=== PATIENT | female | born 1965 | race Caucasian/White ===

== ENCOUNTER 2018-05-20 09:07 | Emergency (ER) | payer BC, SELFPAY ==
[2018-05-20 09:11] VITALS: BP 139/74; PULSE 65; RESP 18; TEMP 36.6; O2SAT 97
--- NOTE | 2018-05-20 09:28 | DI.REPORT_ITS ---
SYMPTOM/DIAGNOSIS: PAIN, FOOSH, TENDER PROX 1ST [facility] LEFT HAND: Three views. There is a comminuted fracture of the radial styloid process. No other fracture or dislocation is seen. No radiopaque foreign bodies are seen in the soft tissues IMPRESSION: Comminuted nondisplaced fracture of the radial styloid process. LEFT WRIST: 4 views. There is a nondisplaced comminuted fracture of the radial styloid process. No other fracture or dislocation is identified. IMPRESSION: Nondisplaced distal left radial fracture as described.
--- NOTE | 2018-05-20 09:29 | ED.GENADUL ---
Disposition Clinical Impression: Abrasion, Radial styloid fracture Disposition: HOME Instructions: Wrist Fracture in Adults (ED), Abrasion (ED) Additional Instructions: Keep splint intact until cleared by a physician. Follow-up with orthopedics. Call for an appointment. Please take tylenol (acetaminophen) 650 mg every 6 hours as needed for pain. Please take ibuprofen 600 mg by mouth every 6-8 hours as needed for pain for the next few days. Please follow-up with your primary care physician. Return to the emergency department immediately for any worsening or new concerning symptoms. Referrals: Maame Ewing [Primary Care Provider] - Rober Rodriguez MD [ [facility] STAFF PHYSICIAN] - Forms: Work Release Medical Decision Making - Medical Decision Making 52-year-old female presents after mechanical trip and fall with injury to her left wrist and hand. Neurovascular intact distally. Patient also sustained abrasion to her left knee. Tetanus is up-to-date with last immunization 2011. Concern for fracture versus sprain. Tylenol given for pain. X-ray of the left hand and wrist reviewed and interpreted by me: Radial styloid fracture Thumb spica wrist splint applied. Patient neurovascularly intact post splint application. Patient was instructed to limit use of left hand including no lifting of heavy objects. Patient instructed to call orthopedic office to schedule follow-up. Spoke with Dr. Rodriguez who agrees with treatment plan and will see patient in follow-up. History of Present Illness - General Chief complaint: Orthopedic Stated complaint: FALL INJURY Time Seen by Provider: 05/20/18 09:22 Source: patient, RN notes reviewed Mode of arrival: ambulatory Limitations: no limitations - History of Present Illness Initial comments: 52-year-old female presents after trip and fall with chief complaint of left wrist pain. Patient notes she was walking and tripped on uneven sidewalk and fell forward. This occurred just prior to arrival. She has had pain in her wrist and hand since the fall. Pain is worse with movement of her wrist. She is associated abrasion to her left knee. No head trauma. No loss of consciousness. No neck pain. No other injury sustained. - Related Data Lisinopril 20 mg PO DAILY tab-cap 03/06/13 Multivitamin [Daily Vitamin] 1 each PO DAILY 03/23/13 Citalopram [CeleXA] 20 mg PO DAILY 07/16/14 Lovastatin [Mevacor] 40 mg PO DAILY tab-cap 01/26/18 Oxybutynin Chloride [Oxybutynin Chloride ER] 5 mg PO DAILY #90 tab-cap 04/27/18 Allergies Allergy/AdvReac Type Severity Reaction Status Date / Time banana [Banana] AdvReac Severe VOMITING Unverified 05/20/18 09:15 Review of Systems Cardiovascular: denies: chest pain Gastrointestinal: denies: abdominal pain Musculoskeletal: as per HPI Skin: as per HPI Neurological: denies: headache Past Medical History - Past Medical History Medical history: no medical history - Social History Smoking status: never smoker General Exam - General Limitations: no limitations General appearance: alert, in no apparent distress - Head Head exam: Present: atraumatic, normocephalic - Eye Eye exam: Present: EOMI - ENT ENT exam: Present: mucous membranes moist - Respiratory Respiratory exam: Present: normal lung sounds bilaterally - Cardiovascular Cardiovascular Exam: Present: regular rate, normal rhythm, normal heart sounds - Extremities Exam Extremities exam: Present: other (Left upper extremity: Tender palpation base of her first and second metacarpals, snuffbox tenderness is present, tender distal radius, able to flex and extend at her wrist and digits with pain in her wrist; distal sensation and motor intact, no elbow or forearm tenderness; abrasion to left knee, left knee with no effusion, no tenderness along her joint lines and no tenderness over her patella, full range of motion of the knee without pain) - Neurological Exam Neurological exam: Present: alert. Absent: altered, motor sensory deficit (Distal left upper extremity) - Skin Skin exam: Present: warm, dry, abrasion (Left knee) Course Vital Signs - 24 hr 05/20/18 09:11 Temperature 36.6 C Pulse 65 Respiratory 18 Rate Blood Pressure 139/74 Pulse Oximetry 97
[2018-05-20] MEDS: Acetaminophen 325 MG TAB 650 MG PO (09:33)
[2018-05-20] MEDS: Bacitracin 1 PACKET (10:11)
== END 2018-05-20 10:28 | disposition home or self-care (01) ==
PROVIDERS: Emergency Provider Student in an Organized Health Care Education/Training Program; PCP Nurse Practitioner Family
DX: S52.515A Nondisplaced fracture of left radial styloid process, initial encounter for closed fracture (principal); W01.0XXA Fall on same level from slipping, tripping and stumbling without subsequent striking against object, initial encounter
CPT/HCPCS: 25600; 73110; 73130; L3807

== ENCOUNTER → 2018-06-08 10:45 | Outpatient (CLI) | payer BC, SELFPAY ==
--- NOTE | 2018-06-08 11:34 | DI.REPORT_ITS ---
SYMPTOM/DIAGNOSIS: RADIAL STYLOID FX F/U LEFT WRIST: 06/08 Two views were obtained and show previously described fracture of the radial styloid with no gross interval change in alignment of fracture fragments in comparison with examination of May 20.
== END ==
PROVIDERS: PCP Nurse Practitioner Family; Visit Provider Physician Assistant Surgical
DX: S52.515D Nondisplaced fracture of left radial styloid process, subsequent encounter for closed fracture with routine healing (principal)
CPT/HCPCS: 73100

== ENCOUNTER 2018-07-06 12:45 | Outpatient (CLI) | payer BC, SELFPAY ==
--- NOTE | 2018-07-06 08:52 | DI.RAD_ITS ---
SYMPTOMS/DIAGNOSIS: INJURY LEFT WRIST: Two views were obtained and show previously described radial styloid fracture with no gross interval change in alignment in comparison with the examination of 06/08/18.
== END 2018-07-06 13:05 ==
PROVIDERS: PCP Nurse Practitioner Family; Visit Provider Physician Assistant Surgical
DX: S52.515D Nondisplaced fracture of left radial styloid process, subsequent encounter for closed fracture with routine healing (principal)
CPT/HCPCS: 73100

== ENCOUNTER 2018-09-09 10:59 | Outpatient (REF) | payer BC, SELFPAY ==
[2018-09-09 13:16] LABS: Anion Gap 11.2 mmol/L (3-11); BUN 18 mg/dL (7-18); CO2 24.8 mmol/L (21.0-32.0); CREATININE 0.79 mg/dL (0.55-1.02); Calcium 9.3 mg/dL (8.5-10.1); Chloride 105 mmol/L (98-107); Glucose 102 mg/dL (70-100); Potassium 4.6 mmol/L (3.5-5.1); Sodium 141 mmol/L (136-145)
== END 2018-09-09 11:19 ==
LOC: NCHCN 10:59
PROVIDERS: PCP Nurse Practitioner Family; Visit Provider Nurse Practitioner Family
DX: G25.81 Restless legs syndrome (principal); I10 Essential (primary) hypertension; E78.5 Hyperlipidemia, unspecified; L84 Corns and callosities; E66.9 Obesity, unspecified
CPT/HCPCS: 80048; 83735

== ENCOUNTER 2019-01-16 12:22 | Outpatient (REF) | payer BC, SELFPAY ==
[2019-01-16 13:23] LABS: BUN 18 mg/dL (7-18); CREATININE 0.79 mg/dL (0.55-1.02); Calcium 9.4 mg/dL (8.5-10.1); Chloride 105 mmol/L (98-107); Cholesterol 157 mg/dL (50-200); Glucose 101 mg/dL (70-100); HDL Cholesterol 47 mg/dL (40-60); LDL CHOLESTEROL 93 mg/dL (<100); Potassium 4.5 mmol/L (3.5-5.1); Sodium 143 mmol/L (136-145); Triglyceride 128 mg/dL (30-150)
== END 2019-01-16 12:42 ==
LOC: NCHCN 12:22
PROVIDERS: PCP Nurse Practitioner Family; Visit Provider Nurse Practitioner Family
DX: Z00.00 Encounter for general adult medical examination without abnormal findings (principal); I10 Essential (primary) hypertension; E78.5 Hyperlipidemia, unspecified
CPT/HCPCS: 80048; 80061; 83721

== ENCOUNTER 2019-09-04 01:41 | Outpatient (CLI) | payer BC, SELFPAY ==
--- NOTE | 2019-09-04 10:30 | DI.MAMMO_ITS ---
EXAM: MG MAMMO SCREENING CLINICAL HISTORY: SCREENING, Z12.39 TECHNIQUE: Mammograms were interpreted according to the usual protocol including computer analysis w [employer] CAD system, tomosynthesis and C-view imaging. COMPARISON: [id number] FINDINGS: The breasts are composed of fatty tissue, breast density category A. There are no dominant masses or microcalcifications. There has been no significant interval change when compared with the prior imag es. IMPRESSION: Category 1, negative mammogram. Yearly screening mammography is recommended. BI-RADS Cat 1 - Negative Breast Density - Category A - Almost entirely fatty
== END 2019-09-04 02:01 ==
PROVIDERS: PCP Nurse Practitioner Family; Visit Provider Nurse Practitioner Family
DX: Z12.31 Encounter for screening mammogram for malignant neoplasm of breast (principal)
CPT/HCPCS: 77063; 77067

== ENCOUNTER 2020-04-26 09:58 | Day surgery (SDC) | payer BC, SELFPAY ==
[2020-04-26 10:05] VITALS: BP 108/73; PULSE 68; RESP 18; TEMP 36.5; O2SAT 96
--- NOTE | 2020-04-26 11:44 | W.PM.DSUDISC ---
Discharge Plan Disposition Patient Disposition: HOME Condition: Good Discharge Details Reason For Visit: CATARACT Attending Provider: Francis Mathis Primary Care Provider: Balbir Golden Home Meds and New Rx's Prescriptions: No Action lisinopril 20 MG tablet 20 mg PO DAILY RF: 0 multivitamin [Daily Vitamin] 1 EACH tablet 1 ea PO DAILY RF: 0 lovastatin 20 MG tablet 40 mg PO DAILY RF: 0 oxybutynin chloride 5 mg tablet extended release 24hr 5 mg PO DAILY Qty: 90 RF: 3 citalopram 20 MG tablet 20 mg PO DAILY RF: 0 Discharge Instructions Stand Alone Forms: Post-op Topical CataractBola (DSU) Discharge Orders Discharge Orders: Discharge Order (Routine); Ordered 04/26/20 Ordered By: Francis Mathis DS: Diagnosis Discharge Diagnosis (1) Posterior subcapsular age-related cataract of left eye: Status: Resolved (2) Nuclear sclerotic cataract of left eye: Status: Resolved
[2020-04-26] MEDS: Tetracaine 0.5% 4 ML BTL OS (11:55)
[2020-04-26] MEDS: Lidocaine 2% Jelly 6 ML SYR (12:05)
[2020-04-26] MEDS: Lidocaine 1% Pres-Free 5 ML VIAL (12:05)
[2020-04-26] MEDS: Balanced Salt Soln.-PLUS 500 ML BAG (12:05)
[2020-04-26] MEDS: Trypan Blue 0.06% 0.5 ML SYR (12:05)
[2020-04-26] MEDS: Moxifloxacin-PF 1 MG/ML VIAL (12:08)
--- NOTE | 2020-04-26 12:34 | ROE_ITS ---
Date of service: 04/26/20 Time of Service: 12:34 Operative Note Operative Note DATE OF PROCEDURE: 04/26/20 PRE-OP DIAGNOSIS: Nuclear/posterior subcapsular cataract, left eye POST-OP DIAGNOSIS: same PROCEDURE: Cataract extraction using phacoemulsification with intraocular lens implant, left eye, using capsular staining with Vision Blue SURGEON: Francis Mathis ANESTHESIA: MAC (with local sub-tenon's anesthetic injection) COMPLICATIONS: None Patient was transported to: same day Patient's condition: stable Implants: Alvaro and Avlaro / [employer] Tecnis [id number] Indications: Progressive decreased vision due to cataract, left eye, with poor red reflex Procedure Description: CATARACT SURGERY OPERATIVE REPORT PREOPERATIVE DIAGNOSIS: 1. Nuclear/posterior subcapsular cataract, left eye 2. Poor red reflex secondary to #1 POSTOPERATIVE DIAGNOSIS: Same OPERATION: 1. Cataract extraction using phacoemulsification with posterior chamber intraocular lens implant, left eye. 2. Capsular staining with Vision Blue IOL: IOL Leather Belt Maker/Model: Alvaro & Alvaro / HEAVEN Tecnis [id number] IOL Power: + 22.50 diopters IOL Serial Number: [id number] Optic Diameter: 6.0 mm Haptic/Overall Diameter: 13.0 mm PHACO INFO: Chucky Centurion Vision System with OZil and [employer]uid[employer] Cumulative Dispersed Energy (CDE): 8.56 seconds SURGEON: Francis Mathis MD, SAJAN ANESTHESIA: Monitored A [facility] Care (MAC), with local sub-tenon's anesthetic infiltration COMPLICATIONS: None SPECIMENS: None INDICATIONS FOR PROCEDURE: The patient is a 54-year-old lady with history of diminished visual acuity in her left eye. She is noted to have a dense posterior subcapsular cataract in the left eye with moderate nuclear cataract. Visual acuity is 2400. The option of cataract surgery was offered to the patient and she wished to proceed. PROCEDURE: The correct surgical eye was identified and marked as the left eye and the pupil was dilated in the preoperative area using mydriatics and cycloplegics. The dilated pupil size was 7.0 mm. Oral sedation was administered in the form of an Imprimis MKO Melt (midazolam 3mg/ketamine 25mg/ondansetron 2mg). The patient was brought to the operating room where cardiopulmonary monitoring was instituted and surgical time-out was performed, confirming the correct operative eye and IOL power. Topical anesthesia was administered and ophthalmic povidone-iodine 5% was instilled into the conjunctival fornices. Lidocaine gel was applied to the cornea and the vicente-ocular area was prepped with Betadine 10% solution and draped in the usual sterile fashion for intraocular surgery, including an aperture drape. A Tegaderm transparent film dressing was cut in half and used to cover the lashes and lid margins. Care was taken to sequester the lashes and lid margins under the Tegaderm dressing. A lid speculum was placed between the lids of the operative eye and the Roshan-Hari operating microscope was maneuvered into position. Rita scissors were then used to make a conjunctival buttonhole approximately 6mm posterior to the limbus in the inferonasal quadrant. Blunt dissection was carried out to expose bare sclera, and a blunt-tipped sub-tenon?s anesthesia cannula was introduced and passed posteriorly along the globe where non- preserved plain lidocaine was injected into posterior sub-Tenon?s space. A sideport knife was used to make a paracentesis port superiorly/superiortemporally. Intraocular phenylephrine/lidocaine was injected int the anterior chamber.. Air was then injected into the anterior chamber, followed by Vision Blue, which was painted over the anterior capsule and then irrigated out using BSS. The anterior chamber was filled with Healon Pro. A 2.4mm keratome knife was used to create a half-thickness groove at the limbus and then to construct a three-plane near-clear corneal tunnel extending 2.0mm into clear cornea at the 3:00 position. A flap was raised on the anterior capsule and capsulorhexis forceps were used to complete a continuous curvilinear capsulorhexis of 5.0 mm. Balanced salt solution was then used to perform cortical cleaving hydrodissection and nuclear hydrodelineation until the lens could be freely rotated within the capsular bag. The lens nucleus was then disassembled and removed within the capsular bag and iris plane using phacoemulsification. Residual cortical material was removed using the 45-degree angled silicone I/A tip with 0.3mm port. The posterior capsule was carefully polished to remove as much residual lens epithelial cells as safely possible. There was some residual posterior capsular plaque in the subincisional area which could not be safely removed despite extensive polishing. The capsular bag was then inflated and the anterior chamber deepened with viscoelastic. The lens implant described above was inserted into the capsular bag using the HEAVEN Benton Injector. A Kuglen hook was used to dial the IOL into position. Residual viscoelastic was then removed first from posterior to the IOL, then from the anterior chamber using the I/A handpiece. The lens implant was noted to center nicely within the capsular bag. The incisions were stromally hydrated, and the anterior chamber was reformed using BSS. Then 0.5cc of moxifloxacin 1.0mg/ml were injected into the capsular bag and anterior chamber. The incisions were checked with a Weck spear and found to be secure. Several drops of ophthalmic povidone-iodine 5% were then applied to the eye followed by two drops of Imprimis combination prednisolone/moxifloxacin/nepafenac solution. The drapes were removed and a clear plastic protective eye shield was placed over the eye. The patient was then returned to Same Day Surgery in stable condition.
[2020-04-26 12:56] VITALS: BP 94/72; PULSE 81; RESP 18; TEMP 37; O2SAT 96
== END 2020-04-26 13:10 | disposition home or self-care (01) ==
PROVIDERS: PCP Nurse Practitioner Family; Visit Provider Ophthalmology
PROC: (CPT 66982; principal; 2020-04-26 12:30)
DX: H25.12 Age-related nuclear cataract, left eye (principal); H25.012 Cortical age-related cataract, left eye; H35.89 Other specified retinal disorders; I10 Essential (primary) hypertension
CPT/HCPCS: 66982; V2632

== ENCOUNTER 2020-09-17 00:59 | Outpatient (CLI) | payer BC, SELFPAY ==
--- NOTE | 2020-09-17 15:23 | DI.MAMMO_ITS ---
EXAM: MAMMO SCREENING CLINICAL HISTORY: SCREENING,Z12.39 TECHNIQUE: Mammograms were interpreted according to the usual protocol including computer analysis w [employer] CAD system, tomosynthesis and C-view imaging. COMPARISON: FINDINGS: Breasts are of moderate density with fairly symmetrical distribution of fibroglandular tissue. No do minant mass identified in either breast. There are groups of microcalcifications seen in each breast , in the central portion of the left breast and in the inferomedial portion of the right breast. The se appear unchanged comparison previous examination of August 2019. There is no associated mass. The calcifications in both right and left breasts are predominant punctate although a couple of curvi linear calcifications are present. No other significant change seen. IMPRESSION: No specific evidence of malignancy at this time. Follow-up mammogram requested in 12 months to re-ev aluate stable probably benign bilateral microcalcifications. BI-RADS Category 2 - Benign Findings Breast Density - Category B - Scattered areas of fibroglandular density
== END 2020-09-17 01:19 ==
PROVIDERS: PCP Nurse Practitioner Family; Visit Provider Nurse Practitioner Family
DX: Z12.31 Encounter for screening mammogram for malignant neoplasm of breast (principal); R92.0 Mammographic microcalcification found on diagnostic imaging of breast
CPT/HCPCS: 77063; 77067

== ENCOUNTER 2020-10-22 13:12 | Outpatient (REF) | payer BC, SELFPAY ==
[2020-10-21 18:42] LABS: HGB 13.9 g/dL (11.2-15.7); MCH 29.8 pg (27.0-33.0); MCHC 33.1 % (32.0-36.0); MCV 89.9 fL (80-95); MPV 10.2 fL (8.0-11.0); Platelet Count 289 10^3/uL (130-400); RBC 4.67 10^6/uL (3.93-5.22); RDW 12.8 % (11.7-14.6); RDW-SD 41.9 fL; WBC 7.31 10^3/uL (4.4-10.8)
[2020-10-21 19:16] LABS: ALT 46 U/L (14-59); AST 24 U/L (15-37); Albumin 4.1 g/dL (3.4-5.0); Alkaline Phosphatase 71 U/L (46-116); Anion Gap 7.3 mmol/L (3-11); BUN 14 mg/dL (7-18); Bilirubin, Total 0.3 mg/dL (0.2-1.0); CO2 27.7 mmol/L (21.0-32.0); Calcium 9.1 mg/dL (8.5-10.1); Calculated LDL 74 mg/dL (<100); Chloride 105 mmol/L (98-107); Cholesterol 162 mg/dL (<200); Glucose 108 mg/dL (74-106); HDL Cholesterol 46 mg/dL (40-60); Potassium 4.1 mmol/L (3.5-5.1); Sodium 140 mmol/L (136-145); Total Protein 7.1 g/dL (6.4-8.2); Triglyceride 210 mg/dL (<150)
== END 2020-10-22 13:32 ==
LOC: NCHCN 13:12
PROVIDERS: PCP Nurse Practitioner Family; Visit Provider Nurse Practitioner Family
DX: I10 Essential (primary) hypertension (principal); E78.5 Hyperlipidemia, unspecified; E66.9 Obesity, unspecified
CPT/HCPCS: 80053; 80061; 85027

== ENCOUNTER 2021-12-08 11:21 | Emergency (ER) | payer BC, SELFPAY ==
[2021-12-08 11:28] VITALS: BP 140/68; PULSE 57; RESP 14; TEMP 36.7; O2SAT 100
--- NOTE | 2021-12-08 11:45 | DI.RAD_ITS ---
Exam(s) XR KNEE RT 3V AP,LAT,JAMEL EXAM: XR KNEE RT 3V AP,LAT,JAMEL CLINICAL HISTORY: pop while walking, pain minimal, no deformity. TECHNIQUE: 2D digital imaging was performed. COMPARISON: No exams were available for comparison FINDINGS: There is no evidence of fracture but there is a joint effusion the suprapatellar bursa. There are degenerative changes in all 3 compartments. There is mild medial joint space narrowing and marginal osteophytes off the medial compartment. Some degenerative change also noted in the lateral and patellofemoral compartments including osteophytes. No osseous lesions. Bone density normal. IMPRESSION: Degenerative changes. Joint effusion DATA REPOSITORY: RADIATION DOSE DELIVERED:
--- NOTE | 2021-12-08 11:54 | W.ED.GENAD ---
Discharge Plan Disposition Patient Disposition: HOME Condition: Stable Discharge Details Clinical Impression: Acute knee pain Primary Care Provider: PRADEEP NUNEZ ED Provider: Francis Landa Home Meds and New Rx's Prescriptions: Continued oxybutynin chloride 5 mg tablet extended release 24hr 5 mg PO DAILY Qty: 90 3RF simvastatin 20 mg tablet 20 mg PO DAILY 0RF lisinopril 20 MG tablet 20 mg PO DAILY 0RF multivitamin [Daily Vitamin] 1 EACH tablet 1 ea PO DAILY 0RF citalopram 20 MG tablet 20 mg PO DAILY 0RF Discharge Instructions Instructions: Knee Pain (ED) Referrals: Harsh Hernandez MD [MD CONSULTING PHYSICIAN] - 1 week Medical Decision Making 56-year-old female history of hypertension hyperlipidemia presents with atraumatic right knee pain, felt a pop yesterday while walking, mild joint effusion, patient endorses sensation of crepitus with flexion, patient has full flexion extension, is weightbearing and ambulatory without assistance, no hip or distal lower extremity issues, soft compartment warm well perfused extremity, sensate, no joint laxity, no point tenderness on examination. Consider meniscal tear versus cartilaginous injury versus less likely ligamentous tear such as ACL or PCL given no laxity versus unlikely dislocation or fracture or bony malignancy. No evidence of joint infection. Screening x-ray. Anti-inflammatory, home care instructions and will be given Ortho follow-up pending imaging to be discharged home 12: 46 patient resting comfortably no acute distress. Evidence of likely osteoarthritis, osteophytes and mild joint effusion on x-ray. Range of motion and ambulation intact. Patient be given orthopedic follow-up. Likely soft tissue injury consider meniscal injury versus partial ligamentous injury. Given stability of joint and patient comfort no splinting or crutches at this time. HPI General Date/Time Provider Initiated Documentation: 12/08/21 11:24. HPI Narrative: 56-year-old female history of hypertension hyperlipidemia, presents after feeling right knee pop while walking, no direct trauma, is able to range the joint, feels a internal clicking, and feels that the knee is swollen Related Data Home Medications Medication Instructions Recorded Confirmed lisinopril 20 mg tablet 20 mg PO DAILY tab-cap 03/06/13 12/08/21 multivitamin (Daily Vitamin) 1 ea PO DAILY 03/23/13 12/08/21 citalopram 20 mg tablet 20 mg PO DAILY 07/16/14 12/08/21 simvastatin 20 mg tablet 20 mg PO DAILY 07/15/20 12/08/21 oxybutynin chloride 5 mg 5 mg PO DAILY #90 tab-cap 07/17/21 12/08/21 tablet,extended release 24 hr Previous Rx's Medication Instructions Recorded oxybutynin chloride 5 mg 5 mg PO DAILY #90 tab-cap 07/17/21 tablet,extended release 24 hr Allergies Allergy/AdvReac Type Severity Reaction Status Date / Time banana [Banana] AdvReac Severe VOMITING Unverified 12/08/21 11:31 General Stated Complaint: Orthopedic WADE: 4 Review of Systems Narrative: Review of Systems Constitutional: negative Eyes: negative ENT: negative Cardiovascular: negative Respiratory: negative Gastrointestinal: negative : negative Musculoskeletal: Right knee pain Skin: negative Neurologic: negative Psych: negative PFSH All Active Problems (Updated 12/08/21 @ 12:48 by Francis Landa MD) Acute knee pain (Acute) Meralgia paresthetica of right side (Acute) OAB (overactive bladder) (Acute) Medical History Asymptomatic varicose veins Dental abscess Depression Essential hypertension Foot callus Hyperlipidemia Hypertension Illiteracy Obesity (BMI 30.0-34.9) Restless leg syndrome Urge incontinence Urolithiasis Surgical History Appendectomy BLADDER SLING (~02/2012) Colonoscopy - IV Sedation x2 - last 4 years ago Hysterectomy, Laparoscopic Supracervical (~02/2012) with LSO Hysteroscopy laparoscopic RSO Tonsillectomy and adenoidectomy Family History Mother Personal history of malignant neoplasm lung CA Father Personal history of malignant neoplasm Bladder CA Brother Personal history of malignant neoplasm Colon CA - ADENOCARCINOMA OF RECTOSIGMOID Grandfather Dementia Grandmother Diabetes Social History Smoking/Tobacco Use Status: Former Tobacco Use Quit Date: 10/18/14 Smoking risk assessment performed?: Yes Alcohol Intake: current Alcohol Intake frequency: holidays/special occasions only Alcohol type: wine and hard liquor Drug use: Never Substance use type: does not use Household members: other Number of Children: 2 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 Current gender identity: female Do you feel safe at home: Yes Do you feel safe in your relationship?: Yes Exam Narrative Exam Narrative: Physical Examination General: alert, awake, cooperative, resting comfortably, no acute distress HEENT: normocephalic, atraumatic; PERRL, EOM intact, conjunctiva normal; no nasal discharge; moist mucous membranes, oral and pharyngeal mucosa normal, tolerating secretions Neck: supple, trachea midline; full ROM Chest: normal to inspection Respiratory: normal respiratory effort, speaking in full sentences, clear to auscultation, no wheezing, rales or rhonchi Cardiac: regular rate, regular rhythm, S1S2 intact, no murmurs rubs or gallops GI: abdomen soft, non-tender, non-distended; no palpable mass or hepatosplenomegaly Skin: no lesions, rashes or trauma appreciated Neuro: AAOx3, normal speech, moving all extremities Extremities: Full flexion extension right lower extremity at knee, able to ambulate and bear weight without assistance, no crepitus, no joint laxity, mild joint effusion, no point tenderness over patella distal femur or proximal tibia, soft compartments, sensate warm well perfused Psych: Appropriate mood and affect Course Vital Signs Vital signs: Vital Signs Temperature 36.7 C 12/08/21 11:28 Pulse 57 L 12/08/21 11:28 Respiratory Rate 14 12/08/21 11:28 Blood Pressure 140/68 12/08/21 11:28 Pulse Oximetry 100 12/08/21 11:28 Temperature 36.7 C 12/08/21 11:28 Temperature Source Temporal Artery Scan 12/08/21 11:28 Pulse 57 L 12/08/21 11:28 Respiratory Rate 14 12/08/21 11:28 Respiratory Effort Non-Labored 12/08/21 11:29 Blood Pressure 140/68 12/08/21 11:28 Blood Pressure Position Sitting 12/08/21 11:28 Pulse Oximetry 100 12/08/21 11:28 Oxygen Delivery Method Room Air 12/08/21 11:28 Oxygen Flow Rate 0 12/08/21 11:28 Pain Level 6 12/08/21 11:28
[2021-12-08] MEDS: Dexamethasone 4 MG TAB 10 MG PO (11:59)
== END 2021-12-08 13:01 | disposition home or self-care (01) ==
PROVIDERS: Emergency Provider Emergency Medicine; PCP Nurse Practitioner Family
DX: M25.561 Pain in right knee (principal)
CPT/HCPCS: 73562; 99283; J8540

== ENCOUNTER 2022-03-11 17:47 | Outpatient (REF) | payer BC, SELFPAY ==
[2022-03-11 17:21] LABS: HCT 43.8 % (36.0-46.0); HGB 14.4 g/dL (11.2-15.7); MCHC 32.9 % (32.0-36.0); MCV 91 fL (80-95); MPV 10.4 fL (8.0-11.0); Platelet Count 288 10^3/uL (130-400); RDW 12.8 % (11.7-14.6); RDW-SD 42.9 fL; WBC 7.75 10^3/uL (4.4-10.8)
[2022-03-11 17:35] LABS: ALT 35 U/L (14-59); AST 19 U/L (15-37); Albumin 4.3 g/dL (3.4-5.0); Alkaline Phosphatase 76 U/L (46-116); BUN 15 mg/dL (7-18); Bilirubin, Total 0.4 mg/dL (0.2-1.0); CREATININE 0.8 mg/dL (0.55-1.02); Calculated LDL 86 mg/dL (<100); Chloride 104 mmol/L (98-107); Cholesterol 173 mg/dL (<200); Glucose 89 mg/dL (74-106); HDL Cholesterol 48 mg/dL (40-60); Potassium 4.5 mmol/L (3.5-5.1); Sodium 141 mmol/L (136-145); Total Protein 7.1 g/dL (6.4-8.2); Triglyceride 195 mg/dL (<150)
[2022-03-13 09:56] LABS: Hepatitis C Ab w Rflx HCV PCR Negative (Negative)
[2022-03-13 10:04] LABS: HIV-1/2 Ag & Ab Screen Negative (Negative)
== END 2022-03-11 17:48 | disposition home or self-care (01) ==
LOC: NCHCN 17:47
PROVIDERS: PCP Nurse Practitioner Family; Visit Provider Nurse Practitioner Family
DX: I10 Essential (primary) hypertension (principal); E78.5 Hyperlipidemia, unspecified; F32.9 Major depressive disorder, single episode, unspecified; E66.9 Obesity, unspecified; Z11.59 Encounter for screening for other viral diseases; Z11.4 Encounter for screening for human immunodeficiency virus [HIV]; Z00.00 Encounter for general adult medical examination without abnormal findings
CPT/HCPCS: 80053; 80061; 85027; 86803; 87389

== ENCOUNTER → 2022-03-30 01:37 | Outpatient (CLI) | payer BC, SELFPAY ==
--- NOTE | 2022-03-30 13:05 | DI.MAMMO_ITS ---
Exam(s) MAMMO SCREENING EXAM: MAMMO SCREENING CLINICAL HISTORY: SCREENING,Z12.39,Z71.89 TECHNIQUE: Mammograms were interpreted according to the usual protocol including computer analysis w [employer] CAD system, tomosynthesis and C-view imaging. COMPARISON: 2012 through 2019 FINDINGS: The breasts are composed of mainly fatty density , Breast Density category A. No suspicious masses or suspicious microcalcifications are seen. Stable calcifications are again not ed in the medial inferior right breast and in the central left breast. No skin thickening or abnormal axillary lymph nodes are seen. There has been no significant change from prior exams. IMPRESSION: BI-RADS Cat 2 - Benign Findings Yearly screening mammography is recommended. Breast Density - Category A, fatty density. A negative radiographic report should not delay biopsy if a dominant or clinically suspicious mass is present. Up to ten percent of cancers are not identified on mammography. A negative report may reinforce clinical impression. Adenosis and dense breasts may obscure an underlying neoplasm. False positive reports average 6 to 10%. Patient will receive a letter notifying them of these results.
== END ==
PROVIDERS: PCP Nurse Practitioner Family; Visit Provider Nurse Practitioner Family
DX: Z00.00 Encounter for general adult medical examination without abnormal findings (principal); Z12.31 Encounter for screening mammogram for malignant neoplasm of breast; R92.1 Mammographic calcification found on diagnostic imaging of breast
CPT/HCPCS: 77063; 77067

== ENCOUNTER 2023-03-16 17:13 | Outpatient (REF) | payer MEDICARE, SELFPAY ==
[2023-03-16 15:56] LABS: Abs Immature Grans 0.02 10^3/uL (0.0-0.06); Absolute Basophil Count 0.08 10^3/uL (0.0-0.2); Absolute Eosinophil Count 0.21 10^3/uL (0.0-0.7); Absolute Lymphocyte Count 2.09 10^3/uL (1.2-3.4); Absolute Monocyte Count 0.51 10^3/uL (0.1-0.8); Absolute Neutrophil Count 3.78 10^3/uL (1.2-6.7); Basophils % 1.2; Eosinophils % 3.1; HCT 43.2 % (36.0-46.0); Immature Grans % 0.3; Lymphocytes % 31.2; MCH 29.5 pg (27.0-33.0); MCHC 32.4 % (32.0-36.0); MCV 91 fL (80-95); MPV 9.8 fL (8.0-11.0); Monocytes % 7.6; Neutrophils % 56.6; Platelet Count 285 10^3/uL (130-400); RBC 4.75 10^6/uL (3.93-5.22); RDW 12.6 % (11.7-14.6); WBC 6.69 10^3/uL (4.4-10.8)
[2023-03-16 16:22] LABS: ALT 39 U/L (14-59); AST 21 U/L (15-37); Albumin 4.1 g/dL (3.4-5.0); Alkaline Phosphatase 72 U/L (46-116); BUN 14 mg/dL (7-18); Bilirubin, Total 0.4 mg/dL (0.2-1.0); CO2 29.9 mmol/L (21.0-32.0); CREATININE 0.8 mg/dL (0.55-1.02); Calcium 9.3 mg/dL (8.5-10.1); Calculated LDL 78 mg/dL (<100); Cholesterol 157 mg/dL (<200); Estimated GFR 84.82 (mL/min/1.73m2); Glucose 111 mg/dL (74-106); HDL Cholesterol 55 mg/dL (40-60); Total Protein 7.7 g/dL (6.4-8.2); Triglyceride 122 mg/dL (<150)
[2023-03-16 16:54] LABS: Anion Gap 5.1 mmol/L (3-11); Chloride 105 mmol/L (98-107); Potassium 4.4 mmol/L (3.5-5.1); Sodium 140 mmol/L (136-145)
== END 2023-03-16 17:14 | disposition home or self-care (01) ==
LOC: NCHCN 17:13
PROVIDERS: PCP Nurse Practitioner Family; Visit Provider Nurse Practitioner Family
DX: I10 Essential (primary) hypertension (principal); E78.5 Hyperlipidemia, unspecified; N32.81 Overactive bladder; F32.9 Major depressive disorder, single episode, unspecified; M72.2 Plantar fascial fibromatosis
CPT/HCPCS: 80053; 80061; 85025

== ENCOUNTER 2023-04-06 14:14 | Outpatient (REF) | payer MEDICARE, SELFPAY ==
--- NOTE | 2023-04-06 14:15 | PAPFT_PTH ---
PATIENT: Maureen Enriquez LOC: [facility] U#:[id number] AGE/SX: 57/F ROOM: RE04/06/[address]: Yesica Michelle MD : 1965 BED: DIS: 04/06/2023 SPEC #: [id number] RECD: 04/06/23 17:42 STATUS: LUCIO LIRA #: [id number] STEVAN: 04/06/23 14:[address]: Yesica Michelle DEPT: [facility] Cytology RECD BY: Shameka Herring ENTERED: 04/06/23 17:43 SP TYPE: PAPFT SHANT DR: PRADEEP NUNEZ NP Tissues: 1 - CX/ENDOCX FOR PAP SMEARS Procedures: PAP THIN PREP/UVM Screening HPV DNA PROBE Comments: [id number]
== END 2023-04-06 14:15 | disposition home or self-care (01) ==
LOC: LBN 14:14
PROVIDERS: PCP Nurse Practitioner Family; Visit Provider Obstetrics & Gynecology
DX: Z11.51 Encounter for screening for human papillomavirus (HPV) (principal); Z01.419 Encounter for gynecological examination (general) (routine) without abnormal findings
CPT/HCPCS: 88142; 87624

== ENCOUNTER 2023-04-30 00:59 | Outpatient (CLI) | payer MEDICARE, SELFPAY ==
--- NOTE | 2023-04-30 07:08 | DI.MAMMO_ITS ---
Exam(s) MAMMO SCREENING EXAM: MAMMO SCREENING CLINICAL HISTORY: screening, Z12.39. TECHNIQUE: Bilateral full field digital CC and MLO mammographic images were obtained with 3D tomosyn thesis and utilizing computer aided detection (CAD). COMPARISON: Prior mammograms were reviewed. FINDINGS: There has been no significant change in the appearance and distribution of the fibroglandular tissue which is again noted be predominately fatty.. There are no new spiculated masses There are no new spiculated masses. Previously described in microcalcification group in the left breast remains stable. Previously described microcalcifications in the right breast remains stable. No new malignant-appearing microcalcification groups in either breast. There is no significant architectural distortion nor skin thickening-retraction. IMPRESSION: Stable findings. No radiographic evidence of malignancy. BI-RADS Category 2 - Benign Findings Breast Density - Category A - Almost entirely fatty Breast density Category C or D implies that the patient has dense breast tissue. Dense breast tissue can make it harder to find cancer on a mammogram. Dense breast tissue is also associated with an incr eased risk of breast cancer. This information about the result of the mammogram report was provided to the patient to raise their awareness. Use this report when you speak with the patient about their risks for breast cancer, which includes their family history. At that time, you may recommend additional screening tests (Ultrasoun d or MRI) as these tests may add significant information. A negative radiographic report should not delay biopsy if a dominant or clinically suspicious mass is present. Up to ten percent of cancers are not identified on mammography. A negative report may reinforce clinical impression. Adenosis and dense breasts may obscure an underlying neoplasm. False positive reports average 6 to 10%. Patient will receive a letter notifying them of these results.
== END 2023-04-30 01:19 ==
LOC: DI 01:00
PROVIDERS: PCP Nurse Practitioner Family; Visit Provider Obstetrics & Gynecology
DX: Z12.31 Encounter for screening mammogram for malignant neoplasm of breast (principal)
CPT/HCPCS: 77063; 77067

== ENCOUNTER 2023-08-15 12:20 | Emergency (ER) | payer OTHER, SELFPAY ==
[2023-08-15 12:23] VITALS: BP 132/65; PULSE 68; RESP 18; TEMP 37; O2SAT 98
--- NOTE | 2023-08-15 12:55 | ED.GENADUL_ITS ---
Discharge Plan Disposition Patient Disposition: Home Condition: Good Discharge Details Clinical Impression: Dysuria Primary Care Provider: PRADEEP NUNEZ ED Provider: Barrett Moreno Burgess Meds and New Rx's Prescriptions: New cephalexin 500 mg capsule 500 mg PO TID Qty: 9 0RF phenazopyridine [Pyridium] 100 mg tablet 100 mg PO TID PRN (Reason: pain) Qty: 6 0RF No Action simvastatin 20 mg tablet 20 mg PO DAILY lisinopril 20 MG tablet 20 mg PO DAILY multivitamin [Daily Vitamin] 1 EACH tablet 1 ea PO DAILY oxybutynin chloride 5 mg tablet extended release 24hr 5 mg PO DAILY Qty: 90 3RF citalopram 20 MG tablet 20 mg PO DAILY Discharge Instructions Instructions: Dysuria (ED) Discharge Data Discharge Date/Time-TO BE ENTERED AT DEPARTURE: 08/15/23 13:45 HPI General Date/Time Provider Initiated Documentation: 08/15/23 12:36 . HPI Narrative: 57 year old female presents to the ED with c/o burning when she urinates over the past 4 days or so. She denies any n/v/d, no fever/chills. She is concerned she has a UTI. Denies any blood in her urine. Related Data Home Medications Medication Instructions Recorded Confirmed lisinopril 20 mg tablet 20 mg PO DAILY 03/06/13 08/15/23 multivitamin (Daily Vitamin tablet) 1 ea PO DAILY 03/23/13 08/15/23 citalopram 20 mg tablet 20 mg PO DAILY 07/16/14 08/15/23 simvastatin 20 mg tablet 20 mg PO DAILY 07/15/20 08/15/23 oxybutynin chloride 5 mg 5 mg PO DAILY #90 tab-caps 07/19/23 08/15/23 tablet,extended release 24 hr cephalexin 500 mg capsule 500 mg PO TID #9 caps 08/15/23 phenazopyridine 100 mg tablet 100 mg PO TID PRN pain 6 doses #6 08/15/23 (Pyridium) tabs Previous Rx's Medication Instructions Recorded oxybutynin chloride 5 mg 5 mg PO DAILY #90 tab-caps 07/19/23 tablet,extended release 24 hr cephalexin 500 mg capsule 500 mg PO TID #9 caps 08/15/23 phenazopyridine 100 mg tablet 100 mg PO TID PRN pain 6 doses #6 08/15/23 (Pyridium) tabs Allergies Allergy/AdvReac Type Severity Reaction Status Date / Time banana [Banana] AdvReac Severe VOMITING Unverified 08/15/23 12:46 General Stated Complaint: Urinary WADE: 3 Review of Systems Narrative: CONST: no fever or chills ABD: no abd pain EXTR: no swelling PFSH All Active Problems (Updated 08/15/23 @ 13:31 by Barrett Moreno MD) Dysuria (Acute) Corns and callosities (Acute) Acquired hammertoes of both feet (Acute) Contracture of Achilles tendon (Acute) Medical History Asymptomatic varicose veins Dental abscess Depression Essential hypertension Foot callus Hyperlipidemia Hypertension Illiteracy Meralgia paresthetica of right side OAB (overactive bladder) Obesity (BMI 30.0-34.9) Osteoarthritis of right knee Injection: 12/23/2021 Pain, foot Plantar fasciitis Restless leg syndrome Urge incontinence Urolithiasis Surgical History Appendectomy BLADDER SLING (~02/2012) Colonoscopy - IV Sedation x2 - last 4 years ago Hysterectomy, Laparoscopic Supracervical (~02/2012) with LSO Hysteroscopy laparoscopic RSO Tonsillectomy and adenoidectomy Family History Mother Personal history of malignant neoplasm lung CA Father Personal history of malignant neoplasm Bladder CA Brother Personal history of malignant neoplasm Colon CA - ADENOCARCINOMA OF RECTOSIGMOID Grandfather Dementia Grandmother Diabetes Social History Smoking/Tobacco Use Status: Former Tobacco Use Quit Date: 10/18/14 Smoking risk assessment performed?: Yes Alcohol Intake: current Alcohol Intake frequency: holidays/special occasions only Alcohol type: wine and hard liquor Drug use: Never Substance use type: does not use Household members: other Number of Children: 2 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 Discussed meds for her sx's for next 3 days, and to give a new sample to her pcp to ensure feeling better. Return for any worsening or concerning sx's. Vital Signs Vital signs: Vital Signs Temperature 37 C 08/15/23 12:23 Pulse 68 08/15/23 12:23 Respiratory Rate 18 08/15/23 12:23 Blood Pressure 132/65 08/15/23 12:23 Pulse Oximetry 98 08/15/23 12:23 Temperature 37 C 08/15/23 12:23 Temperature Source Skin 08/15/23 12:23 Pulse 68 08/15/23 12:23 Respiratory Rate 18 08/15/23 12:23 Respiratory Effort Normal 08/15/23 12:53 Blood Pressure 132/65 08/15/23 12:23 Blood Pressure Position Sitting 08/15/23 12:23 Pulse Oximetry 98 08/15/23 12:23 Oxygen Delivery Method Room Air 08/15/23 12:23 Oxygen Flow Rate 0 08/15/23 12:23 Pain Level 5 08/15/23 12:23 Comment taking ibuprofen 08/15/23 12:23
[2023-08-15 13:03] LABS: Bilirubin Negative (Negative); Blood Negative (Negative); Clarity Clear (Clear); Glucose Negative (Negative); Ketones Negative (Negative); Leukocyte Esterase Small (Negative); Nitrite Negative (Negative); Specific Gravity 1.025 (1.005-1.025); Urobilinogen 0.2 mg/dL (Up to 0.2); pH 5.5 (5-8)
[2023-08-15 13:14] LABS: Bacteria Moderate HPF (Negative); C & S Indicated? No/Sq. Contamination; Casts Negative LPF (Negative); Crystals Negative HPF (Negative); Epithelial Cells Many HPF (Negative); Mucus Negative (Negative)
== END 2023-08-15 13:45 | disposition home or self-care (01) ==
PROVIDERS: Student in an Organized Health Care Education/Training Program; Emergency Provider Emergency Medicine; PCP Nurse Practitioner Family
DX: R30.0 Dysuria (principal)
CPT/HCPCS: 99283; 81003; 81015

== ENCOUNTER → 2024-03-01 09:46 | Outpatient (CLI) | payer OTHER, SELFPAY ==
--- NOTE | 2024-03-01 09:15 | DI.RAD_ITS ---
Exam(s) XR FOOT RT COMPLETE EXAM: XR FOOT RT COMPLETE CLINICAL HISTORY: Right 5th toe pain, hammertoe rt foot, M20.41. TECHNIQUE: 2D digital imaging was performed of the right foot. Three images were obtained. AP, obl ique and lateral views were obtained. COMPARISON: CR RIGHT FOOT COMPLETE from 06/26/2012 FINDINGS: BONES: No acute fracture is present. No bony destructive lesion is seen. There is a plantar calcaneal spur. There is an enthesophyte at the posterior calcaneus. JOINTS: No dislocation present. Degenerative changes are seen in the foot. SOFT TISSUE: Normal. IMPRESSION: No acute fracture or dislocation. DATA REPOSITORY: RADIATION DOSE DELIVERED:
== END ==
PROVIDERS: PCP Nurse Practitioner Family; Visit Provider Podiatrist
DX: M20.41 Other hammer toe(s) (acquired), right foot (principal)
CPT/HCPCS: 73630

== ENCOUNTER 2024-03-27 15:20 | Outpatient (REF) | payer OTHER, SELFPAY ==
[2024-03-27 21:31] LABS: Abs Immature Grans 0.02 10^3/uL (0.0-0.06); Absolute Basophil Count 0.06 10^3/uL (0.0-0.2); Absolute Lymphocyte Count 1.54 10^3/uL (1.2-3.4); Absolute Monocyte Count 0.57 10^3/uL (0.1-0.8); Absolute Neutrophil Count 4.93 10^3/uL (1.2-6.7); Basophils % 0.8 %; Eosinophils % 1.4 %; HCT 45.8 % (36.0-46.0); HGB 15.2 g/dL (11.2-15.7); Immature Grans % 0.3 %; Lymphocytes % 21.3 %; MCH 29.5 pg (27.0-33.0); MCHC 33.2 % (32.0-36.0); MCV 89 fL (80-95); Monocytes % 7.9 %; Neutrophils % 68.3 %; Platelet Count 259 10^3/uL (130-400); RBC 5.15 10^6/uL (3.93-5.22); RDW 12.5 % (11.7-14.6); RDW-SD 40.9 fL; WBC 7.22 10^3/uL (4.4-10.8)
[2024-03-27 21:44] LABS: ALT 32 U/L (14-59); AST 19 U/L (15-37); Albumin 4.4 g/dL (3.4-5.0); Alkaline Phosphatase 81 U/L (46-116); Anion Gap 9.8 mmol/L (3-11); BUN 17 mg/dL (7-18); Bilirubin, Total 0.5 mg/dL (0.2-1.0); CO2 28.2 mmol/L (21.0-32.0); CREATININE 0.8 mg/dL (0.55-1.02); Calcium 9.3 mg/dL (8.5-10.1); Chloride 101 mmol/L (98-107); Glucose 103 mg/dL (74-106); Potassium 4.3 mmol/L (3.5-5.1); Sodium 139 mmol/L (136-145); Total Protein 7.7 g/dL (6.4-8.2)
[2024-03-29 12:50] LABS: Lyme Ab w Rflx to Lyme Confirm Negative (Negative)
[2024-03-31 14:59] LABS: Anaplasma phagocytophilum Negative (Negative); B. miyamotoi PCR Negative (Negative); Babesia divergens/MO-1 Negative (Negative); Babesia duncani Negative (Negative); Babesia microti Negative (Negative); Ehrlichia chaffeensis Negative (Negative); Ehrlichia ewingii/canis Negative (Negative); Ehrlichia muris eauclairensis Negative (Negative)
== END 2024-03-27 15:21 | disposition home or self-care (01) ==
LOC: LBN 15:20
PROVIDERS: PCP Nurse Practitioner Family; Visit Provider Nurse Practitioner Family
DX: R53.83 Other fatigue (principal)
CPT/HCPCS: 80053; 87798; 85025; 86618

== ENCOUNTER 2024-03-28 18:53 | Outpatient (REF) | payer OTHER, SELFPAY ==
[2024-03-29 17:03] LABS: Campylobacter PCR Negative (Negative); Salmonella PCR Negative (Negative); Shiga Toxin PCR Negative (Negative); Shigella/Enteroinvasive Ecoli Negative (Negative)
== END 2024-03-28 18:54 | disposition home or self-care (01) ==
LOC: LBN 18:53
PROVIDERS: PCP Nurse Practitioner Family; Visit Provider Nurse Practitioner Family
DX: R19.7 Diarrhea, unspecified (principal)
CPT/HCPCS: 87505; 87177

== ENCOUNTER 2024-07-10 08:10 | Day surgery (SDC) | payer OTHER, SELFPAY ==
--- NOTE | 2024-07-09 11:49 | W.PM.DSUDISC ---
Date of service: 07/10/24 Time of Service: 10:14 Discharge Plan Disposition Patient Disposition: Home Condition: Good Discharge Details Reason For Visit: screening colonoscopy Attending Provider: Petros Nelson Primary Care Provider: PRADEEP NUNEZ Home Meds and New Rx's Prescriptions: Continued simvastatin 20 mg tablet 20 mg PO DAILY lisinopril 20 MG tablet 20 mg PO DAILY multivitamin [Daily Vitamin] 1 EACH tablet 1 ea PO DAILY oxybutynin chloride 5 mg tablet extended release 24hr 5 mg PO DAILY Qty: 90 3RF citalopram 20 MG tablet 20 mg PO DAILY Discontinued polyethylene glycol 3350 17 gram/dose powder 238 g PO ONCE Qty: 238 0RF Rx Instructions: take per colonoscopy instructions bisacodyl [Dulcolax (bisacodyl)] 5 mg tablet,delayed release (DR/EC) 5 mg PO ONCE Qty: 4 0RF Rx Instructions: take per colonoscopy instructions Discharge Instructions Instructions: Colon polyps Additional Instructions: Maureen, we were able to complete colonoscopy today without any difficulty. I hope you are comfortable. I did find to remove a single polyp today. To the naked eye, it does not appear at all worrisome. To be safe, however, we will send it off to the pathologist, and once we know the nature of this polyp, the office will be in touch with recommendations for the timing of your next colonoscopy. If you have any questions in the meantime, please do not hesitate to call. 1. If tolerated, consume a soft, low fiber diet for 1-2 days. [address] Do not drive, drink alcohol, operate machinery, make critical decisions, or do activities that require coordination or balance for 24 hours. 3. Because air was put into your colon during the procedure, expelling air from your rectum (passing gas or farting) is normal. 4. You may not have a bowel movement for 1-3 days because of the colonoscopy prep. This is normal. 5. Go directly to the emergency room if you notice any of the following: Develop chills (warm to touch), or if you have a thermometer and your temperature is above 101 Difficulty breathing or difficultly swallowing Persistent vomiting Severe abdominal pain, other than gas cramps Severe chest pain Black, tarry stools Any bleeding ? exceeding one tablespoon 6. Call your physician if the site where your intravenous was started becomes red, swollen, painful, and warm to touch. 7. Your physician has reviewed your pre-procedure medications. Please continue to take those medications as previously ordered. You will be given specific information/education regarding any changes to your medications before leaving. Activity:: Activity as Tolerated Diet:: As Tolerated Discharge Orders Discharge Orders: Discharge Order (Routine); Ordered 07/09/24 Ordered By: Petros Nelson DS: Diagnosis Discharge Diagnosis (1) Encounter for screening colonoscopy: Status: Acute Asessment and Plan: Follow-up on polypectomy results
--- NOTE | 2024-07-09 11:50 | COLE_ITS ---
Date of service: 07/10/24 Time of Service: 10:15 Colonoscopy Report Date of procedure: 07/10/24 Pre-op diagnosis general: screening colonoscopy Post-op diagnosis procedure note: other (Colon polyp) Procedure: colonoscopy with polypectomy Surgeon: Petros Nelson Anesthesia Type: General:No Airway Estimated blood loss (mL): 5 Pathology: other (0.25 cm pedunculated polyp at 25 cm from the anus) Complications: None Disposition: same day Indications: Maureen is a 58 year old woman who needs her next screening colonoscopy Prep: Miralax/Dulcolax Procedure Start Time: 09:49 Procedure End Time: 10:06 Retraction Time: 9 Findings: 0.25 cm pedunculated polyp at 25 cm from the anus Procedure Description: After the induction of monitored anesthesia, and with the patient in left lateral decubitus position, I began by performing an external anorectal exam.? Perineum and skin were normal, as was the anal verge.? There was no evidence of external hemorrhoids.? Next, I performed a digital rectal exam.? I did not appreciate any abnormal findings.? Next, I advanced a colonoscope into the rectal vault.? I performed retroflexion.? This appeared normal.? Using insufflation, I then advanced the colonoscope beyond the rectal folds and into the sigmoid colon before advancing towards the cecum.? The scope was noted to be in the cecum by identification of the ileocecal valve and appendiceal orifice.? I then began withdrawing the colonoscope using repeated irrigation as necessary for full evaluation of the colonic mucosa. Around 25 cm from the anal verge I identified a 0.25 cm polyp. ?It appeared pedunculated in character. ?I was able to remove this with a cold forcep polypectomy. ?I examined the site, and there was minimal bleeding. ?Once this was completed, I continued to withdraw the scope and examine the remainder of the colonic mucosa.?Once the scope was withdrawn to the level of the rectum, great care was taken to examine portions of the rectal folds.? Finally, the scope was withdrawn and the patient was brought to the same-day surgery recovery unit as the anesthetic wore off. ?The findings and instructions were shared with the patient prior to discharge. [place] Bowel Prep [place] Bowel Prep Right Colon: 3 Left Colon: 3 Transverse Colon: 3 Total Score: 9
[2024-07-10 08:32] VITALS: BP 128/65; PULSE 54; RESP 18; TEMP 36.1; O2SAT 99
[2024-07-10] MEDS: Lactated Ringers 1,000 ML 80 ML IV (08:58)
--- NOTE | 2024-07-10 09:11 | ANES.PREOP_ITS ---
General Info Date of Service Date Performed: 07/10/24 Height: 5 ft 2 in Weight: 82.6 kg Body Mass Index (BMI): 33.3 Surgical Procedure: Operation Date: 07/10/24 09:50 Proposed Procedure Side Surgeon p Hetal Nelson MD Meds Allergies and Home Medications Allergies Allergy/AdvReac Type Severity Reaction Status Date / Time banana (Banana) AdvReac Severe VOMITING Verified 07/10/24 08:38 Home Medication ?Medication ?Instructions ?Recorded lisinopril 20 mg tablet 20 mg PO DAILY 03/06/13 multivitamin (Daily Vitamin tablet) 1 ea PO DAILY 03/23/13 citalopram 20 mg tablet 20 mg PO DAILY 07/16/14 simvastatin 20 mg tablet 20 mg PO DAILY 07/15/20 oxybutynin chloride 5 mg 5 mg PO DAILY #90 tab-caps 07/19/23 tablet,extended release 24 hr Current Visit Medications: Current Medications Generic Name Dose Route Start Last Admin Trade Name Freq PRN Reason Stop Dose Admin Hyoscyamine Sulfate 0.125 mg 07/09/24 11:51 Hyoscyamine 0.125 Mg Sl/Oral/Chew SL 08/08/24 11:50 DIRECTED PRN Ringer's Solution 1,000 mls @ 80 mls/hr 07/10/24 06:00 07/10/24 08:58 IV 07/10/24 23:59 80 mls/hr INFUSION YADY Administration IV Miscellaneous Supplies 1 each 07/10/24 06:00 Iv Access IV 07/10/24 23:59 DIRECTED YADY Sodium Chloride 0 ml 07/10/24 06:00 Normal Saline Flush 10 Ml Syr IV 07/10/24 23:59 PRN PRN Sodium Chloride 0 ml 07/10/24 06:00 Normal Saline 10 Ml Vial IJ 07/10/24 23:59 DIRECTED PRN Sterile Water 0 ml 07/10/24 06:00 Water,Injection,Sterile 10 Ml Vial IJ 07/10/24 23:59 DIRECTED PRN PFSH Active Problems Active Problems: Problem Status Onset Code Encounter for screening colonoscopy Acute Z12.11 Hammertoe of right foot Acute M20.41 Corns and callosities Acute L84 Acquired hammertoes of both feet Acute M20.41, M20.42 Contracture of Achilles tendon Acute M67.00 Posterior subcapsular age-related cataract of left eye Resolved H25.042 Nuclear sclerotic cataract of left eye Resolved H25.12 Medical History Medical History (Updated 07/10/24 @ 08:39 by Shelley Delgado RN) Tobacco use disorder (03/15/14) Family history of colon cancer (03/15/14) OAB (overactive bladder) (04/27/18) Pain, foot Plantar fasciitis Osteoarthritis of right knee Injection: 12/23/2021 Urolithiasis Asymptomatic varicose veins Obesity (BMI 30.0-34.9) Illiteracy Urge incontinence Foot callus Restless leg syndrome Hypertension Dental abscess Meralgia paresthetica of right side Hyperlipidemia Depression OAB (overactive bladder) Essential hypertension Surgical History Surgical History History of bilateral cataract extraction laparoscopic RSO Tonsillectomy and adenoidectomy Hysteroscopy Hysterectomy, Laparoscopic Supracervical (~02/2012) with LSO Colonoscopy - IV Sedation x2 - last 4 years ago BLADDER SLING (~02/2012) Appendectomy Tobacco Smoking/Tobacco Use Status: Former Tobacco Use Passive smoking exposure: No Alcohol Alcohol Intake: current Alcohol intake frequency: holidays/special occasions only Alcohol type: wine and hard liquor Substance Use Substance use: Never Substance use type: does not use Prental History History 3 Para Hx # Term Pregnancies 2 Multiple births Hx # Pregnancies Ectopic pregnancies AB induced Hx Number of Living Children 2 AB spontaneous 1 Vital Signs and Lab Results Vital Signs Most Recent Vital Signs in EMR: Most Recent Vital Signs Temp Pulse Resp BP Pulse Ox 36.1 C L 54 L 18 128/65 99 07/10/24 08:32 07/10/24 08:32 07/10/24 08:32 07/10/24 08:32 07/10/24 08:32 Lab Results Blood Type / Crossmatch: No Data to Display Complete Blood Count: No Data to Display Complete Metabolic Panel: No Data to Display Liver Function Panel: No Data to Display Coagulation Panel: No Data to Display Cardiac Panel: 2 No Data to Display Arterial Blood Gas: No Data to Display Venous Blood Gas: No Data to Display Pancreas Panel: No Data to Display Thyroid Panel: No Data to Display Infectious Disease: No Data to Display Blood Cultures: No Data to Display Toxicology Panel: No Data to Display Anesthesia Assessment and Plan Anesthesia History Personal History: No History of Anesthesia Complications Family History: No Family History of Anesthesia Complications Exercise Tolerance Exercise Tolerance: Metabolic Equivalents>4 Pertinent Negatives Pertinent Negatives: No Symptoms of GERD, No Major Cardiovascular Symptoms or Complaints and No Major Pulmonary Symptoms or Complaints Cardiac & Pulmonary Exam Cardiac Exam: Normal S1/S2 Heart Sounds Pulmonary Exam: Clear Bilateral Breath Sounds Implantable Cardiac Device Does patient have a Pacemaker or an ICD?: No Airway Exam Known Difficult Airway: No Mallampati Class: 3 Mouth Opening: Normal (> 3cm) Thyromental Distance: Greater than 3 cm Neck Range of Motion: Full ROM Neck Circumference: Normal Teeth Condition: Normal Dentition ASA Classification ASA Score: ASA 2 Emergency Case?: No NPO Status NPO Status: NPO Clears >2 hours, Solids >8 hours Anesthesia Plan Resuscitation Status: Full Code Anesthesia Technique: General Anesthesia Airway Planned: Natural Airway Monitors Used: Standard Monitors
[2024-07-10 09:14] VITALS: BMI 33.3
--- NOTE | 2024-07-10 10:05 | BOWEL_PTH ---
PATIENT: Maureen Enriquez LOC: [facility] U#:[id number] AGE/SX: 58/F ROOM: RE07/10/[address]: Petros Nelson MD : 1965 BED: DIS: 07/10/2024 SPEC #: [id number] RECD: 07/10/24 13:07 STATUS: LUCIO RE #: [id number] STEVAN: 07/10/24 10:[address]: Petros Nelson DEPT: Surgical Specimen RECD BY: Shameka Herring ENTERED: 07/10/24 13:07 SP TYPE: Bowel OTHR DR: PRADEEP NUNEZ NP Tissues: 1 - BIOPSY BOWEL Procedures: GROSS AND MICRO LEVEL 4 Comments: [id number]
[2024-07-10 10:15] VITALS: BP 98/65; PULSE 68; RESP 16; TEMP 36; O2SAT 96
[2024-07-10 10:31] VITALS: BP 109/73; PULSE 65; RESP 18; TEMP 36; O2SAT 100
--- NOTE | 2024-07-10 11:10 | W.ANESPOSTOP ---
Postoperative Evaluation Date, Time and Location Date Performed: 07/10/24 Time Performed: 10:20 Patient Location: Day Surgery Unit Vital Signs Most Recent Imported Vital Signs: Most Recent Vital Signs Temp Pulse Resp BP Pulse Ox 36 C L 65 18 109/73 100 07/10/24 10:31 07/10/24 10:31 07/10/24 10:31 07/10/24 10:31 07/10/24 10:31 Pain Score Most Recent Pain Score: Most Recent Pain Score Pain Level 0 07/10/24 10:15 Assessment Mental Status: Awake (Alert & Oriented to Patient Baseline) Airway and Respiratory Function: Patent airway with normal (patient baseline) respiratory exam Cardiovascular Function: Hemodynamically Stable Hydration Status: Adequately Hydrated Nausea & Vomiting: No Nausea or Vomiting Pain: Pt. Denies Any Pain Peripheral Nerve Block: Patient did not receive a nerve block
== END 2024-07-10 10:50 | disposition home or self-care (01) ==
LOC: SUR 08:11
PROVIDERS: PCP Nurse Practitioner Family; Visit Provider Surgery
PROC: 0DJD8ZZ Inspection of Lower Intestinal Tract, Via Natural or Artificial Opening Endoscopic (ICD-10-PCS; CPT 45378; principal; 2024-07-10 09:45)
DX: Z12.11 Encounter for screening for malignant neoplasm of colon (principal); D12.5 Benign neoplasm of sigmoid colon
CPT/HCPCS: 45380; 88305; J2001; J2704; J3010

== ENCOUNTER 2024-10-10 02:53 | Outpatient (CLI) | payer OTHER, SELFPAY ==
--- NOTE | 2024-10-10 | DI.MAMMO_ITS ---
Exam(s) MAMMO SCREENING EXAM: MAMMO SCREENING CLINICAL HISTORY: Screening, Z12.39 TECHNIQUE: Mammograms were interpreted according to the usual protocol including computer analysis w [employer] CAD system, tomosynthesis and C-view imaging. COMPARISON: 2015 through 2019. FINDINGS: The breasts are composed of mainly fatty density , Breast Density category A. No suspicious masses or suspicious microcalcifications are seen. Benign calcifications are again not ed bilaterally. No skin thickening or abnormal axillary lymph nodes are seen. There has been no significant change from prior exams. IMPRESSION: BI-RADS Category 2 - Benign Findings Yearly screening mammography is recommended. Breast Density - Category A, fatty density. A negative radiographic report should not delay biopsy if a dominant or clinically suspicious mass is present. Up to ten percent of cancers are not identified on mammography. A negative report may reinforce clinical impression. Adenosis and dense breasts may obscure an underlying neoplasm. False positive reports average 6 to 10%. Patient will receive a letter notifying them of these results.
--- NOTE | 2024-10-10 07:56 | DI.CTLCSR_ITS ---
Exam(s) CT CHEST LUNG CANCER SCREEN EXAM: CT CHEST LUNG CANCER SCREEN CLINICAL HISTORY: Screening, personal h/o nicotine dependence, Z87.891 TECHNIQUE: Imaging Protocol: Axial computed tomography images with coronal and sagittal reformatted images were created and reviewed. Low dose screening protocol. COMPARISON: No exams were available for comparison FINDINGS: Tracheobronchial tree: No bronchiectasis or mucus plugging. Mediastinum and Echo: No dominant adenopathy or fluid collection. Pulmonary parenchyma: No consolidation or dominant measurable mass. Mild emphysematous changes. No s ignificant interstitial changes. Lung Nodules: 4 millimeter nodule right lower lobe. 2 x 4 x 4 millimeter nodule superior segment rig ht lower lobe medially. Pleura: No effusion. No pneumothorax. Heart: The heart is not dilated. No coronary artery calcifications are seen. No pericardial effusion. Aorta: Thoracic aorta non-dilated. Upper abdomen: Unremarkable. Bones: Unremarkable for age. Soft Tissues: Unremarkable. IMPRESSION: No suspicious pulmonary nodules. Lung RADS Cat 2 - Benign Appearance / Behavior: Nodules with a very low likelihood of becoming a clin ically active cancer due to size or lack of growth Lung-RADS 1.0 CATEGORIES: Category 0 - Prior chest CT exam(s) being located for comparison. Category 1 - Annual screening in 12 months. No nodules or definitely benign nodules. Category 2 - Annual screening in 12 months. Benign appearance. Nodules with low likelihood of becomin g active cancer. Category 3 - 6-month follow-up. Probably benign. Short-term follow-up suggested. Nodules with low lik elihood of becoming active cancer. Category 4A - 3-month follow-up and CT/PET if >8 mm in size. Suspicious finding. Findings which requi re additional testing. Category 4B - Findings which require additional testing and tissue sampling. Category 4X - Category 3 or 4 nodules with additional features or imaging findings that increases the suspicion of malignancy. Modifier S- Potentially clinically significant findings (non lung cancer) RADIATION DOSE DELIVERED: !Error Total DLP DATA REPOSITORY: All CT scans at this facility are submitted to the National Radiology Data Registry (NRDR) Dose Index Registry (DIR) with the [employer] ([employer]). RADIATION OPTIMIZATION: All CT scans at this facility use at least one of these dose optimization te chniques: automated exposure control; mA and/or kV adjustment per patient size (includes targeted exa ms where dose is matched to clinical indication); or iterative reconstruction.
== END 2024-10-10 03:13 ==
LOC: DI 02:53
PROVIDERS: PCP Nurse Practitioner Family; Visit Provider Nurse Practitioner Family
DX: Z12.31 Encounter for screening mammogram for malignant neoplasm of breast (principal); Z87.891 Personal history of nicotine dependence; R92.313 Mammographic fatty tissue density, bilateral breasts; D24.1 Benign neoplasm of right breast; D24.2 Benign neoplasm of left breast
CPT/HCPCS: 71271; 77063; 77067

== ENCOUNTER 2025-10-01 18:05 | Outpatient (REF) | payer OTHER, SELFPAY ==
[2025-10-01 20:05] LABS: ALT 26 U/L (10-49); AST 23 U/L (<34); Albumin 4.5 g/dL (3.2-5.0); Alkaline Phosphatase 71 U/L (46-116); Anion Gap 11.4 mmol/L (3-11); BUN 20 mg/dL (9-23); Bilirubin, Total 0.3 mg/dL (0.2-1.2); CO2 23.6 mmol/L (20.0-31.0); Calcium 9.3 mg/dL (8.3-10.6); Chloride 109 mmol/L (98-107); Cholesterol 154 mg/dL (<200); Glucose 126 mg/dL (74-106); HDL Cholesterol 52 mg/dL (>40); Potassium 4.2 mmol/L (3.5-5.1); Sodium 144 mmol/L (136-145); Total Protein 6.9 g/dL (5.7-8.2)
== END 2025-10-01 18:06 | disposition home or self-care (01) ==
LOC: NCHCN 18:05
PROVIDERS: PCP Nurse Practitioner Family; Visit Provider Nurse Practitioner Family
DX: Z00.00 Encounter for general adult medical examination without abnormal findings (principal); Z13.1 Encounter for screening for diabetes mellitus
CPT/HCPCS: 80053; 80061

== ENCOUNTER → 2025-10-17 07:36 | Outpatient (CLI) | payer OTHER, SELFPAY ==
--- NOTE | 2025-10-17 | DI.CTLCSR_ITS ---
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 Low dose screening protocol. COMPARISON: CT CT CHEST LUNG CANCER SCREEN from 10/10/2024 FINDINGS: Tracheobronchial tree: No bronchiectasis or mucus plugging. Mediastinum and Echo: No dominant adenopathy or fluid collection. Pulmonary parenchyma: No consolidation or dominant measurable mass. N mild emphysematous changes. No significant interstitial changes. Lung Nodules: 4 millimeter nodule superior segment right lower lobe. 4 millimeter nodule more inferiorly in the right lower lobe. Pleura: No effusion. No pneumothorax. Heart: The heart is not dilated. No coronary artery calcifications are seen. No pericardial effusion. Aorta: Thoracic aorta non-dilated. Upper abdomen: Unremarkable. Bones: Unremarkable for age. Soft Tissues: Unremarkable. IMPRESSION: Two stable 4 millimeter nodules in the right lower lobe. Lung RADS Cat 2 - Benign Appearance / Behavior: Nodules with a very low likelihood of becoming a clinically active cancer due to size or lack of growth Lung-RADS 1.0 CATEGORIES: Category 0 - Prior chest CT exam(s) being located for comparison. Category 1 - Annual screening in 12 months. No nodules or definitely benign nodules. Category 2 - Annual screening in 12 months. Benign appearance. Nodules with low likelihood of becoming active cancer. Category 3 - 6-month follow-up. Probably benign. Short-term follow-up suggested. Nodules with low likelihood of becoming active cancer. Category 4A - 3-month follow-up and CT/PET if >8 mm in size. Suspicious finding. Findings which require additional testing. Category 4B - Findings which require additional testing and tissue sampling. Category 4X - Category 3 or 4 nodules with additional features or imaging findings that increases the suspicion of malignancy. Modifier S- Potentially clinically significant findings (non lung cancer) RADIATION DOSE DELIVERED: 78.8mGy.cm Total DLP DATA REPOSITORY: All CT scans at this facility are submitted to the National Radiology Data Registry (NRDR) Dose Index Registry (DIR) with the [employer] ([employer]). RADIATION OPTIMIZATION: All CT scans at this facility use at least one of these dose optimization techniques: automated exposure control; mA and/or kV adjustment per patient size (includes targeted exams where dose is matched to clinical indication); or iterative reconstruction.
--- NOTE | 2025-10-17 | DI.MAMMO_ITS ---
Exam(s) MAMMO SCREENING EXAM: MAMMO SCREENING CLINICAL HISTORY: SCREENING,Z12.31 TECHNIQUE: Mammograms were interpreted according to the usual protocol including computer analysis with CAD system, tomosynthesis and C-view imaging. COMPARISON: 2015 through 2023 FINDINGS: The breasts are composed of mainly fatty density , Breast Density category A. No suspicious masses or suspicious microcalcifications are seen. There are stable calcifications in both breasts. No skin thickening or abnormal axillary lymph nodes are seen. There has been no significant change from prior exams. IMPRESSION: BI-RADS Category 2 - Benign Findings Yearly screening mammography is recommended. Breast Density- Category A - The breast are almost entirely fatty. Breast density Category C or D implies that the patient has dense breast tissue. Dense breast tissue can make it harder to find cancer on a mammogram. Dense breast tissue is also associated with an increased risk of breast cancer. This information about the result of the mammogram report was provided to the patient to raise their awareness. Use this report when you speak with the patient about their risks for breast cancer, which includes their family history. At that time, you may recommend additional screening tests (Ultrasound or MRI) as these tests may add significant information. A negative radiographic report should not delay biopsy if a dominant or clinically suspicious mass is present. Up to ten percent of cancers are not identified on mammography. A negative report may reinforce clinical impression. Adenosis and dense breasts may obscure an underlying neoplasm. False positive reports average 6 to 10%. Patient will receive a letter notifying them of these results.
== END ==
LOC: DI 07:36
PROVIDERS: PCP Nurse Practitioner Family; Visit Provider Nurse Practitioner Family
DX: Z12.31 Encounter for screening mammogram for malignant neoplasm of breast (principal); Z87.891 Personal history of nicotine dependence; R92.313 Mammographic fatty tissue density, bilateral breasts
CPT/HCPCS: 71271; 77063; 77067